=== PATIENT | female | born 1995 | race Caucasian/White ===

== ENCOUNTER → 2016-05-14 | Outpatient (CLI) | payer MEDICAID ==
[~2016-05-14] MED LIST: COLACE-DPS100 MG PO; IRON325 M1 PO; MOTRIN-DPS800 MG PO; PRENATAL VIT1 TAB PO; SYNTHROID88 MCG PO; TYLENOL #3 DPS1 TAB PO
== END | disposition home or self-care (01) ==
LOC: RAD.S 05-12 09:00
DX: R10.9 Unspecified abdominal pain (principal)